=== PATIENT | female | born 1950 | race Caucasian/White ===

== ENCOUNTER 2016-04-20 16:43 | Emergency (ER) | payer BC ==
--- NOTE | 2016-04-20 16:56 | UC ---
Respiratory Complaint HPI - HPI Summary HPI Summary: The patient comes in today for: 1. Wheezing, cough, headache, sinus congestion, sore throat, left ear pain, body aches: Onset: 10 days ago. Palliative/Provocative: Being still and drinking liquids helps. Bending over makes her sinuses hurt. Exertion makes her short of breath. Quality: Ache Region: Sinuses, lungs. Severity: 6/10 Time: Constant. Associated symptoms: Rhinitis: none. Cough production: green. Chest pain: Retrosternal, ache, tightness, not present if she does not exert herself. Wheezing: Present. Inhalers: She has used in the past, but is not using them now. * - History of Current Complaint Stated Complaint: COUGH,ST,FEVER,EARS Time Seen by Provider: 04/20/16 16:49 Hx Obtained From: Patient Hx Last Menstrual Period: Years ago. ?: No - Allergies/Home Medications Allergies/Adverse Reactions: Allergies Allergy/AdvReac Type Severity Reaction Status Date / Time Amoxicillin Allergy Intermediate Hives Verified 07/29/15 10:59 Codeine AdvReac Intermediate Vomiting Verified 04/20/16 17:24 PMH/Surg Hx/FS Hx/Imm Hx Previously Healthy: No - IBS Endocrine History Of: Reports: Diabetes - type 2, Dyslipidemia Denies: Thyroid Disease, Hyperthyroidism, Hypothyroidism Cardiovascular History Of: Denies: Cardiac Disorders, Hypertension, Pacemaker/ICD, Myocardial Infarction , Congestive Heart Failure, Atrial Fibrillation, Deep Vein Thrombosis, Bleeding Disorders Respiratory History Of: Reports: Asthma Denies: COPD, Bronchitis, Pneumonia, Pulmonary Embolism GI/ History Of: Denies: Gastroesophageal Reflux, Ulcer, Gastrointestinal Bleed, Gall Bladder Disease, Kidney Stones, Diverticulitis, Renal Disease, Urosepsis Neurological History Of: Denies: TIA, CVA, Dementia, Seizures, Migraine Psychological History Of: Denies: Anxiety, Depression, Bipolar Disorder, Schizophrenia, Post Traumatic Stress Disorder Cancer History Of: Denies: Lung Cancer, Colorectal Cancer, Breast Cancer, Prostate Cancer, Cervical Cancer Other History Of: Negative For: HIV, Hepatitis B, Hepatitis C, Anticoagulant Therapy - Surgical History Surgical History: Yes Surgery Procedure, Year, and Place: PARA THYROIDECTOMY, TONSILECTOMY, TUBAL LIGATION,D&C FOR FIBROIDS, cataract/bilat - Family History Known Family History: Negative: Cardiac Disease, Hypertension - Social History Occupation: Employed Full-time Alcohol Use: Occasionally Substance Use Type: None Smoking Status (MU): Never Smoked Tobacco - Immunization History Most Recent Influenza Vaccination: [id number] Review of Systems Constitutional: Negative Skin: Negative Eyes: Negative ENT: Negative Respiratory: Shortness Of Breath, Cough Cardiovascular: Chest Pain Gastrointestinal: Negative Genitourinary: Negative All Other Systems Reviewed And Are Negative: Yes Physical Exam Triage Information Reviewed: Yes Appearance: Well-Appearing, No Pain Distress, Well-Nourished Vital Signs Reviewed: Yes Eyes: Positive: Conjunctiva Clear. Negative: Discharge ENT: Positive: Hearing grossly normal. Negative: Pharyngeal erythema, Nasal congestion, Nasal drainage, TM bulging, TM dull, TM red, Tonsillar swelling, Tonsillar exudate Dental: Negative: Gross Decay/Caries @, Dental Fracture @ Neck: Positive: Supple, Nontender, No Lymphadenopathy. Negative: Nuchal Rigidity Respiratory: Positive: Chest non-tender, No respiratory distress, No accessory muscle use, Other: - Inspiration/expiration cycle a bit shortened.. Negative: Rhonchi, Wheezing Cardiovascular: Positive: RRR, No Murmur Abdomen Description: Positive: Nontender, No Organomegaly, Soft. Negative: Distended, Guarding Musculoskeletal: Positive: Strength Intact, ROM Intact Neurological: Positive: Alert, Muscle Tone Normal Psychological: Positive: Age Appropriate Behavior, Consolable Skin: Negative: rashes, breakdown Respiratory Course/Dx - Course Course Of Treatment: Patient was told that I was concerned about her complaint of chest pain/tightness which is worse with exertion--particularly with her being diabetic. She was told that I would not be able to rule out her symptoms coming from a heart problem here and therefore would recommend her go to the ER. She was not interested in going to the ER and even declined getting an EKG. She wanted DuoNeb treatment. However later the patient declined the aerosol treatment. She was told of her diagnotic/treatment options. She does not want to go to the ER, but will take antibiotic, NSAID and inhaler. - Differential Dx/Diagnosis Provider Diagnoses: Sinusitis. bronchitis. Upper respiratory infection. bronchospasm. viral infection. Pharyngitis Discharge - Discharge Plan Condition: Stable Disposition: HOME Patient Education Materials: Upper Respiratory Infection (ED) Referrals: Xochitl Tucker MD [Primary Care Provider] - 1 Week (Please see your primary care provider in about a week to see how well you are doing. If you get worse, please be seen sooner.)
[2016-04-20] MEDS ORDERED: Albuterol/Ipratropium NEB.SOL* Albuterol 2.5 MG/Ipratropium 0.5 MG 3 ML INH ONE (17:03)
[2016-04-20 17:24] VITALS: BP 145/75
== END 2016-04-20 18:01 | disposition home or self-care (01) ==
LOC: UCCORT 16:43
DX: J32.9 Chronic sinusitis, unspecified (principal); J40 Bronchitis, not specified as acute or chronic; J06.9 Acute upper respiratory infection, unspecified; J98.01 Acute bronchospasm; B34.9 Viral infection, unspecified; Z88.5 Allergy status to narcotic agent; Z88.0 Allergy status to penicillin
CPT/HCPCS: 99212; A9270-GY; G0463

== ENCOUNTER 2016-10-16 19:59 | Emergency (ER) | payer BC ==
[2016-10-16 21:51] VITALS: BP 148/73
[2016-10-16] MEDS ORDERED: Ciprofloxacin TAB* 500 MG PO ONE (22:07)
--- NOTE | 2016-10-16 22:10 | ED ---
GI/ HPI - HPI Summary HPI Summary: 66 yr old female with the complaint of frequency, urgency, hesitancy, suprapubic discomfort. Onset of symptoms was over a week ago. She denies fever , chills, nausea and vomiting. She has no other complaints. Symptoms are moderate. - History of Current Complaint Chief Complaint: UCGU Time Seen by Provider: 10/16/16 21:38 Stated Complaint: URINARY Hx Last Menstrual Period: Years ago. - Allergy/Home Medications Allergies/Adverse Reactions: Allergies Allergy/AdvReac Type Severity Reaction Status Date / Time Amoxicillin Allergy Intermediate Hives Verified 10/16/16 21:47 Codeine AdvReac Intermediate Vomiting Verified 10/16/16 21:47 Home Medications: Home Medications Albuterol HFA INHALER* [Ventolin HFA Inhaler*] 2 puff INH Q6H PRN 10/16/16 [ History Confirmed 10/16/16] PMH/Surg Hx/FS Hx/Imm Hx Endocrine/Hematology History: Reports: Hx Diabetes - type 2 Denies: Hx Anticoagulant Therapy, Hx Thyroid Disease Cardiovascular History: Denies: Hx Congestive Heart Failure, Hx Deep Vein Thrombosis, Hx Hypertension , Hx Myocardial Infarction, Hx Pacemaker/ICD Respiratory History: Denies: Hx Asthma, Hx Chronic Obstructive Pulmonary Disease (COPD), Hx Lung Cancer, Hx Pneumonia, Hx Pulmonary Embolism GI History: Denies: Hx Gall Bladder Disease, Hx Gastrointestinal Bleed, Hx Ulcer, Hx Urosepsis History: Denies: Hx Kidney Stones, Hx Renal Disease Neurological History: Denies: Hx Dementia, Hx Migraine, Hx Seizures, Hx Transient Ischemic Attacks (TIA) Psychiatric History: Denies: Hx Anxiety, Hx Depression, Hx Schizophrenia, Hx Bipolar Disorder - Surgical History Surgery Procedure, Year, and Place: PARA THYROIDECTOMY, TONSILECTOMY, TUBAL LIGATION,D&C FOR FIBROIDS, cataract/bilat Infectious Disease History: No Infectious Disease History: Denies: Traveled Outside the [place] in Last 30 Days - Family History Known Family History: Positive: Unknown Negative: Cardiac Disease, Hypertension - Social History Lives: With Family Alcohol Use: Rare Substance Use Type: Reports: None Smoking Status (MU): Never Smoked Tobacco Review of Systems Constitutional: Negative Positive: dysuria, frequency, urgency All Other Systems Reviewed And Are Negative: Yes Physical Exam Triage Information Reviewed: Yes Vital Signs On Initial Exam: Initial Vitals Temp Pulse Resp BP Pulse Ox 97.3 F 70 14 148/73 98 10/16/16 21:39 10/16/16 21:39 10/16/16 21:39 10/16/16 21:39 10/16/16 21:39 Vital Signs Reviewed: Yes Appearance: Positive: Well-Appearing Eyes: Positive: EOMI ENT: Positive: Normal ENT inspection Respiratory/Lung Sounds: Positive: Clear to Auscultation, Breath Sounds Present Cardiovascular: Positive: RRR Abdomen Description: Positive: Nontender Musculoskeletal: Positive: Strength/ROM Intact Neurological: Positive: Alert, Oriented to Person Place, Time Psychiatric: Positive: Normal Diagnostics - Vital Signs Vital Signs Temp Pulse Resp BP Pulse Ox 10/16/16 21:39 97.3 F 70 14 148/73 98 - Laboratory Lab Results: Lab Results 10/16/16 Range/Units 21:53 POC Urine Color Other POC Urine Clarity Cloudy POC Urine pH 5.5 (5-9) POC Ur Specif [place] 1.010 (1.010-1.030) POC Urine Protein Negative (Negative) POC Ur Glucose (UA) 1+ H (Negative) POC Urine Ketones Negative (Negative) POC Urine Blood Trace-intact H (Negative) POC Urine Nitrite Negative (Negative) POC Urine Bilirubin Negative (Negative) POC Urine Urobilinogen 0.2 (Negative) POC U Leukocyte Esteras 3+ H (Negative) Lab Statement: Any lab studies that have been ordered have been reviewed, and results considered in the medical decision making process. GIGU Course/Dx - Course Course Of Treatment: 66 yr old female with urinary symptoms and uti by testing. Rx with cipro - Diagnoses Provider Diagnoses: UTI (urinary tract infection) Discharge - Discharge Plan Condition: Good Disposition: HOME Prescriptions: Ciprofloxacin TAB* [Cipro 500 MG TAB*] 500 mg PO BID #14 tab Patient Education Materials: Urinary Tract Infection in Women (ED) Referrals: Xochitl Tucker MD [Primary Care Provider] -
== END 2016-10-16 22:17 | disposition home or self-care (01) ==
LOC: UCCORT 19:59
DX: N39.0 Urinary tract infection, site not specified (principal); B96.1 Klebsiella pneumoniae [K. pneumoniae] as the cause of diseases classified elsewhere; E11.9 Type 2 diabetes mellitus without complications; Z88.1 Allergy status to other antibiotic agents; Z88.5 Allergy status to narcotic agent
CPT/HCPCS: 81003; 87077; 87086; 87186; 99212; A9270-GY; G0463

== ENCOUNTER 2017-03-19 10:24 | Emergency (ER) | payer BC ==
[2017-03-19 11:24] VITALS: BP 135/71
--- NOTE | 2017-03-19 12:35 | UC ---
Respiratory Complaint HPI - HPI Summary HPI Summary: 66 yo female has been ill for one week productive cough/wheezing low energy/fatigue myalgias sinus pressure and pain Has used inhalers in past but no dx of asthma or COPD - History of Current Complaint Chief Complaint: UCRespiratory Stated Complaint: RESPIRATORY,FLU SYMPTOMS Time Seen by Provider: 03/19/17 12:20 Hx Obtained From: Patient Hx Last Menstrual Period: Years ago. Onset/Duration: Gradual Onset, Lasting Days - 7 Timing: Constant Severity Initially: Mild Severity Currently: Moderate Pain Intensity: 3 Pain Scale Used: 0-10 Numeric Character: Cough: Productive Aggravating Factors: Exertion, Deep Breaths Alleviating Factors: Nothing Associated Signs And Symptoms: Positive: Fever, Chills, Wheezing, Nasal Congestion, Sinus Discomfort Related History: Similar Episode/Dx as: - bronchitis - Allergies/Home Medications Allergies/Adverse Reactions: Allergies Allergy/AdvReac Type Severity Reaction Status Date / Time Amoxicillin Allergy Intermediate Hives Verified 03/19/17 11:24 Codeine AdvReac Intermediate Vomiting Verified 03/19/17 11:24 PMH/Surg Hx/FS Hx/Imm Hx Previously Healthy: Yes Endocrine History: Other Other Endocrine History: hyperparathyoidism Respiratory History: Bronchitis, Pneumonia Other History Of: Negative For: HIV, Hepatitis B, Hepatitis C, Anticoagulant Therapy - Surgical History Surgical History: Yes Surgery Procedure, Year, and Place: PARA THYROIDECTOMY, TONSILECTOMY, TUBAL LIGATION,D&C FOR FIBROIDS, cataract/bilat - Family History Known Family History: Positive: Unknown Negative: Cardiac Disease, Hypertension - Social History Alcohol Use: Occasionally Substance Use Type: None Smoking Status (MU): Never Smoked Tobacco - Immunization History Most Recent Influenza Vaccination: [id number] Review of Systems Constitutional: Fever, Chills, Fatigue Skin: Negative Eyes: Negative ENT: Nasal Discharge, Sinus Congestion Respiratory: Cough Cardiovascular: Negative Gastrointestinal: Negative Genitourinary: Negative Motor: Negative Neurovascular: Negative Musculoskeletal: Negative Neurological: Negative Psychological: Negative Is Patient Immunocompromised?: No All Other Systems Reviewed And Are Negative: Yes Physical Exam Triage Information Reviewed: Yes Appearance: Well-Appearing, No Pain Distress, Well-Nourished Vital Signs: Initial Vital Signs Temp 99 F 03/19/17 11:13 Pulse 80 03/19/17 11:13 Resp 12 03/19/17 11:13 BP 135/71 03/19/17 11:13 Pulse Ox 98 03/19/17 11:13 Vital Signs Reviewed: Yes Eyes: Positive: Conjunctiva Clear ENT: Positive: Hearing grossly normal, Nasal congestion, Uvula midline. Negative: Muffled voice, Hoarse voice, Dental tenderness Dental: Positive: Other: - upper plate Neck: Positive: Supple, Nontender, No Lymphadenopathy, Other: - surgical scar Respiratory: Positive: No respiratory distress, No accessory muscle use, Wheezing - with forced expiration Cardiovascular: Positive: RRR, No Murmur, Pulses Normal Musculoskeletal: Positive: ROM Intact, No Edema Neurological: Positive: Alert Psychological Exam: Normal UC Diagnostic Evaluation - Laboratory O2 Sat by Pulse Oximetry: 98 - normal/not hypoxic - Radiology Xray Interpretation: No Acute Changes Radiology Interpretation Completed By: Radiologist Respiratory Course/Dx - Differential Dx/Diagnosis Provider Diagnoses: acute bronchitis Discharge - Discharge Plan Condition: Stable Disposition: HOME Prescriptions: Albuterol inh POWDER (NF) [Proair Respiclick] 108 mcg IN QID #1 DOXYcycline CAP(*) [DOXYcycline 100MG CAP(*)] 100 mg PO BID #14 cap Patient Education Materials: Acute Bronchitis (ED) Referrals: Xochitl Tucker MD [Primary Care Provider] - 3 Days (if not better) Additional Instructions: recheck for new or worsening symptoms
--- NOTE | 2017-03-19 12:52 | RAD ---
Indication: Cough and wheezing. 2 views of the chest including dual energy PA views are reviewed. No mediastinal shift is noted. Heart is of normal size and configuration. Calcified granuloma in the left lung base is noted. No pleural fluid, pneumonia or pneumothorax is noted. IMPRESSION: No active cardiopulmonary disease is noted.
== END 2017-03-19 13:18 | disposition home or self-care (01) ==
LOC: UCCORT 10:24
DX: J20.9 Acute bronchitis, unspecified (principal); E21.3 Hyperparathyroidism, unspecified; Z87.01 Personal history of pneumonia (recurrent); Z88.3 Allergy status to other anti-infective agents; Z88.5 Allergy status to narcotic agent
CPT/HCPCS: 71046; 99212; G0463

== ENCOUNTER 2018-06-04 17:44 | Emergency (ER) | payer BC ==
[2018-06-04] MEDS ORDERED: Metoclopramide IV* 5 MG/ML 2 ML VIAL ONE (20:25)
[2018-06-04] MEDS ORDERED: Naproxen TAB* 250 MG PO ONE (20:26)
--- NOTE | 2018-06-04 20:39 | UC ---
Respiratory Complaint HPI - HPI Summary HPI Summary: 68 year old female with history of DM, migraine here with complaint of URI symptoms along with headache and vomiting. Reports symptoms for the past one week but 3 days ago, patient developed migraine with nausea and vomiting. She reports multiple episodes of vomiting but no fever or diarrhea. Reports she has not had migraine as such in over two years. She also reports cough, non- productive worsening in the past few days. Reports chest pain when she coughs but denies exertional symptoms, change in ET or diaphoresis. - History of Current Complaint Chief Complaint: UCGeneralIllness Stated Complaint: SINUSES,HEADACHE Time Seen by Provider: 06/04/18 19:30 Hx Obtained From: Patient Hx Last Menstrual Period: Years ago. Onset/Duration: Gradual Onset Timing: Constant Severity Initially: Mild Pain Intensity: 5 Character: Cough: Nonproductive Aggravating Factors: Nothing Alleviating Factors: Nothing Associated Signs And Symptoms: Positive: Fever, Chills, URI, Nasal Congestion, Sinus Discomfort. Negative: Hemoptysis, Calf Pain, Hoarseness - Allergies/Home Medications Allergies/Adverse Reactions: Allergies Allergy/AdvReac Type Severity Reaction Status Date / Time amoxicillin Allergy Hives Verified 06/04/18 18:30 codeine AdvReac Vomiting Verified 06/04/18 18:30 Home Medications: Home Medications Berberine 500 mg PO DAILY 06/04/18 [History Confirmed 06/04/18] Calcium Carbonate CHEW TAB* [Tums*] 500 mg PO BID PRN 06/04/18 [History Confirmed 06/04/18] Ibuprofen TAB* [Advil TAB*] 400 mg PO Q6H PRN 06/04/18 [History Confirmed ] Simethicone [Gas-X Extra Strength] 125 mg PO DAILY PRN 06/04/18 [History Confirmed 06/04/18] PMH/Surg Hx/FS Hx/Imm Hx Previously Healthy: No Endocrine History: Diabetes Other History Of: Negative For: HIV, Hepatitis B, Hepatitis C, Anticoagulant Therapy - Surgical History Surgical History: Yes Surgery Procedure, Year, and Place: PARA THYROIDECTOMY, TONSILECTOMY, TUBAL LIGATION,D&C FOR FIBROIDS, cataract/bilat - Family History Known Family History: Positive: Unknown Negative: Cardiac Disease, Hypertension - Social History Alcohol Use: Rare Substance Use Type: None Smoking Status (MU): Never Smoked Tobacco - Immunization History Most Recent Influenza Vaccination: [id number] Review of Systems All Other Systems Reviewed And Are Negative: Yes Constitutional: Positive: Negative ENT: Positive: Sinus Congestion Respiratory: Positive: Cough Cardiovascular: Positive: Chest Pain Genitourinary: Positive: Negative Neurological: Positive: Headache. Negative: Weakness, Paresthesia, Numbness Is Patient Immunocompromised?: No Physical Exam Triage Information Reviewed: Yes Appearance: Well-Appearing Vital Signs: Initial Vital Signs Temp 37.1 C 06/04/18 18:32 Pulse 95 06/04/18 18:32 Resp 14 06/04/18 18:32 BP 130/64 06/04/18 18:32 Pulse Ox 97 06/04/18 18:32 Vital Signs Reviewed: Yes ENT Exam: Normal Neck exam: Normal Respiratory: Positive: Other: - tender to palpation Cardiovascular Exam: Normal Abdominal Exam: Normal Musculoskeletal Exam: Normal Neurological Exam: Normal Skin Exam: Normal Diagnostics - EKG Cardiac Rate: NL Cardiac Rhythm: Sinus: Normal ST Segment: Normal Respiratory Course/Dx - Course Course Of Treatment: Patient non-toxic, well appearing. She feels better after nebs. CXR here no evidence of consolidation. EKG non-ischemic. Will dc with meds and return/follow up precaution. - Differential Dx/Diagnosis Differential Diagnosis/HQI/PQRI: Lower Resp Infection, Sinusitis, Other - Migraine Provider Diagnosis: URI with cough and congestion Discharge - Sign-Out/Discharge Documenting (check all that apply): Patient Departure All imaging exams completed and their final reports reviewed: Yes - Discharge Plan Condition: Good Disposition: HOME Prescriptions: Benzonatate CAP* [Tessalon 100 MG CAP*] 100 mg PO TID #15 cap Naproxen [Naproxen 375 mg tab] 375 mg PO BID PRN #20 tablet PRN Reason: Headache Patient Education Materials: Migraine Headache (ED), Upper Respiratory Infection (ED) Referrals: Xochitl Tucker MD [Primary Care Provider] - - Billing Disposition and Condition Condition: GOOD Disposition: Home
[2018-06-04] MEDS: Albuterol/Ipratropium NEB.SOL* Albuterol 2.5 MG/Ipratropium 0.5 MG 3 ML INH ONE (20:40)
[2018-06-04 21:24] VITALS: BP 142/62
== END 2018-06-04 21:30 | disposition home or self-care (01) ==
LOC: UCCORT 17:44
DX: J06.9 Acute upper respiratory infection, unspecified (principal); R05 Cough; R09.81 Nasal congestion; E11.9 Type 2 diabetes mellitus without complications; R11.2 Nausea with vomiting, unspecified; G43.909 Migraine, unspecified, not intractable, without status migrainosus; Z88.0 Allergy status to penicillin; Z88.5 Allergy status to narcotic agent
CPT/HCPCS: 71046; 93005; 96372; 99212; A9270-GY; G0463; J2765

== ENCOUNTER 2018-11-19 14:26 | Emergency (ER) | payer BC ==
--- OUTSIDE RECORDS SUMMARY | 2018-11-19 14:35 | XMS REPORT | Summary of Care ---
:1950 Author Organization [facility] Address [address] [facility] [place] [address] Care Team Providers Name Role Phone Xochitl Tucker MD Primary Care Provider Reason for Referral MRI/CAT/PET Scan (Routine) Status Reason Specialty Diagnoses / Referred By Referred To Procedures Contact Contact Pending Review Diagnoses Hyperparathyroidism (HCC) Galsamir, Procedures NM SPECT/CT NECK CHEST PARATHYROID MD Xochitl [address] [place] [address] MRI/CAT/PET Scan (Routine) Status Reason Specialty Diagnoses / Referred By Referred To Procedures Contact Contact Pending Review Diagnoses Hyperparathyroidism (HCC) Galyanova, Procedures US SOFT TISSUE HEAD NECK ULTRASOUND MD Xochitl [address] [place] [address] Reason for Visit Reason Comments Follow Up 1mth lab results Encounter Details Date Type Department Care Team Description 10/26/2018 Office Visit Isabel Tucker, Uncontrolled diabetes mellitus type 2 without complications (HCC) (Primary Dx); Practice MD Xochitl Hyperparathyroidism (HCC) [address] [facility] [address] [place] [address] [place], [place] [phone] [phone] Allergies Active Allergy Reactions Severity Noted Date Comments Kdc:Amoxicillin+Edetic Acid+Sodium Benzoate Hives 06/29/2012 Codeine GI Reaction 06/29/2012 Fentanyl And Related GI Reaction 07/02/2015 documented as of this encounter (statuses as of 10/26/2018) Medications Medication Sig Dispensed Refills Start Date End Date Status Simethicone (GAS-X Take by 0 Active PO) mouth. As needed Glucose Blood 1 Each by 100 Strip 0 07/14/2018 Active (ACCU-CHEK Topical route SMARTVIEW) In Vitro TWICE DAILY. Strip ACCU-CHEK FASTCLIX Inject 1 Each 102 Each 0 07/14/2018 Active LANCETS Does not beneath the apply Misc skin TWICE DAILY. Vitamin D, Take 50,000 4 Cap 0 09/23/2018 Active Ergocalciferol, Units by mouth (ERGOCALCIFEROL) EVERY 7 DAYS. 940[address] units Oral Cap metFORMIN Take 1 Tab by 60 Tab 1 10/05/2018 Active (GLUCOPHAGE) 500 MG mouth TWICE Oral Tab DAILY. glipiZIDE Take 1 Tab by 30 Tab 0 08/22/2018 10/26/2018 Discontinued (GLUCOTROL) 5 MG mouth DAILY. Oral Tab Rosuvastatin Take 1 Tab by 30 Tab 0 08/22/2018 10/26/2018 Discontinued Calcium (CRESTOR) mouth DAILY. 10 MG Oral Tab documented as of this encounter (statuses as of 10/26/2018) Active Problems Problem Noted Date Age-related osteoporosis without current pathological fracture 07/22/2018 Uncontrolled diabetes mellitus type 2 without complications 07/22/2018 Uncontrolled type 2 diabetes mellitus without complication, without 06/23/2016 long-term current use of insulin Hyperlipidemia 06/29/2012 IBS (irritable bowel syndrome) Migraine DM (diabetes mellitus) Parathyroid adenoma Overview: NS positive 12/28/12 documented as of this encounter (statuses as of 10/26/2018) Resolved Problems Problem Noted Date Resolved Date Diabetes mellitus 07/28/2012 11/25/2012 documented as of this encounter (statuses as of 10/26/2018) Immunizations Name Administration Dates Next Due Influenza Vaccine Whole 11/19/2015 PNEUMOCOCCAL POLYSACCHARIDE VACCINE 11/29/2015, 06/12/2013 Pneumococcal Conjugate(13 Valent) 07/22/2018 TD Vaccine 06/25/2010 documented as of this encounter Social History Tobacco Use Types Packs/Day Years Used Date Never Smoker Smokeless Tobacco: Never Used Alcohol Use Drinks/Week oz/Week Comments Yes 0 Standard drinks or equivalent 0.0 Sex Assigned at Date Recorded Not on file Job Start Date Occupation Industry Not on file Not on file Not on file Travel History Travel Start Travel End No recent travel history available. documented as of this encounter Last Filed Vital Signs Vital Sign Reading Time Taken Comments Blood Pressure 108/60 10/26/2018 2:34 PM EDT Pulse 70 10/26/2018 2:34 PM EDT Temperature 37.6 10/26/2018 2:34 PM EDT C (99.7 F) Respiratory Rate - - Oxygen Saturation 96% 10/26/2018 2:34 PM EDT Inhaled Oxygen Concentration - - Weight 66.7 kg (147 lb 1.6 oz) 10/26/2018 2:34 PM EDT Height 157.5 cm (5' 2") 10/26/2018 2:34 PM EDT Body Mass Index 26.9 10/26/2018 2:34 PM EDT documented in this encounter Patient Instructions Patient InstructionsXochitl Tucker MD - 10/26/2018 2:20 PM EDT1. Schedule neck US and nuclear study 2. Schedule fasting blood tests 3. Follow up after the tests with sugar diary 4. Schedule appointment with an eye doctor documented in this encounter Progress Notes Xochitl Tucker MD - 10/26/2018 2:20 PM EDT PATIENT: Telma Morales : 1950 DATE OF SERVICE: 10/26/2018 SUBJECTIVE: 68-y.o. female for follow up of diabetes. Diabetic Review of Systems - medication compliance: compliant all of the time, diabetic diet compliance: compliant most of the time, home glucose monitoring: is performed regularly, didn't bring sugar diary today, reports fasting values range 160-170, non fasting values range 120-150. Other symptoms and concerns: continues to have elevated Calcium, PTH. Vit D - normal. Has history ofparathyroid adenoma Past Medical History: Diagnosis Date Cervical dysplasia Cryo DM (diabetes mellitus) (HCC) eye 07/2013 Hyperlipidemia IBS (irritable bowel syndrome) Migraine Parathyroid adenoma Removed 1998 Current Outpatient Medications Medication Sig ACCU-CHEK FASTCLIX LANCETS Does not apply Misc Inject 1 Each beneath the skin TWICE DAILY. Glucose Blood (ACCU-CHEK SMARTVIEW) In Vitro Strip 1 Each by Topical route TWICE DAILY. metFORMIN (GLUCOPHAGE) 500 MG Oral Tab Take 1 Tab by mouth TWICE DAILY. Simethicone (GAS-X PO) Take by mouth. As needed Vitamin D, Ergocalciferol, (ERGOCALCIFEROL) 17725 units Oral Cap Take 50, 000 Units by mouth EVERY 7 DAYS. No current facility-administered medications for this visit. OBJECTIVE: BP 108/60 (BP Location: Left arm, Patient Position: Sitting) | Pulse 70 | Temp 99.7 F (37.6 C) | Ht 5' 2" (1.575 m) | Wt 147 lb 1.6 oz (66.7 kg ) | SpO2 96% | BMI 26.90 kg/m General appearance: alert, well appearing, and in no distress. Renal panel - elevated sugar, Calcium, Vit D, TSH - normal, PTH - high Component Latest Ref Rng & Units 10/20/2018 10/20/2018 10/20/2018 10/20/2018 8:38 AM 8:38 AM 8:38 AM 8:38 AM Sodium 134 - 145 mmol/L 137 Potassium 3.5 - 5.1 mmol/L 4.8 Chloride 98 - 107 mmol/L 104 CO2 22 - 30 mmol/L 24 Glucose (Lab) 70 - 99 mg/dl 178 (H) Creatinine 0.7 - 1.2 mg/dl 0.5 (L) BUN 7 - 17 mg/dl 11 Calcium 8.3 - 10.1 mg/dl 11.0 (H) Albumin 3.5 - 5.0 g/dl 4.1 Phosphorus 2.5 - 4.5 MG/DL 3.6 eGFR See Interpretation Below ml/min/1.73ml Sq >60 BUN/Creatinine Ratio 6 - 22 RATIO 22 Anion Gap 3 - 11 mmol/L 9 Vitamin D 25 Hydroxy 32.0 - 100.0 ng/ml 35.3 TSH 0.47 - 4.68 uIu/ml 2.09 Pth Intact 10.0 - 73.0 pg/ml 140.1 (H) Patient advised on tests results ICD-9-CM ICD-10-CM 1. Uncontrolled diabetes mellitus type 2 without complications (HCC) 250.02 E11.65 COMPREHENSIVE METABOLIC PANEL GLYCOHEMOGLOBIN A1C LIPID PROFILE 2. Hyperparathyroidism (HCC) 252.00 E21.3 US SOFT TISSUE HEAD NECK ULTRASOUND NM SPECT/CT NECK CHEST PARATHYROID IONIZED CALCIUM Patient Instructions 1. Schedule neck US and nuclear study 2. Schedule fasting blood tests 3. Follow up after the tests with sugar diary 4. Schedule appointment with an eye doctor Author: Xochitl Tucker MD 10/26/2018 14:56 documented in this encounter Plan of Treatment Date Type Specialty Care Team Description 11/16/2018 Lab Internal Medicine Name Type Priority Associated Diagnoses Order Schedule US SOFT TISSUE HEAD NECK Imaging Routine Hyperparathyroidism (HCC) Expected : ULTRASOUND 10/26/2018, Expires: 10/26/2019 NM SPECT/CT NECK CHEST Imaging Routine Hyperparathyroidism (HCC) Expected: PARATHYROID 10/26/2018, Expires: 10/26/2019 COMPREHENSIVE METABOLIC Lab Routine Uncontrolled diabetes Expected: PANEL mellitus type 2 without 10/26/2018 complications (HCC) (Approximate), Expires: 10/27/2019 IONIZED CALCIUM Lab Routine Hyperparathyroidism (HCC) Expected: 10/26/2018 (Approximate), Expires: 10/27/2019 GLYCOHEMOGLOBIN A1C Lab Routine Uncontrolled diabetes Expected: mellitus type 2 without 10/26/2018 complications (HCC) (Approximate), Expires: 10/27/2019 LIPID PROFILE Lab Routine Uncontrolled diabetes Expected: mellitus type 2 without 10/26/2018 complications (HCC) (Approximate), Expires: 10/27/2019 Health Maintenance Due Date Last Done Comments COLONOSCOPY SCREENING 1998 ZOSTER IMMUNIZATION SERIES 1998 (1 of 2) Diabetic Eye Exam 04/29/2016 04/29/2015 HEMOGLOBIN A1C 10/07/2018 07/07/2018, 05/26/2016, 06/05/2015, Additional history exists INFLUENZA VACCINE (#1) 2018 11/19/2015 FOOT EXAM 06/29/2019 06/28/2018, 06/28/2018, 06/23/2016, Additional history exists URINE MICROALBUMIN 06/29/2019 06/28/2018, 06/04/2015, 07/28/2012 LIPID DISORDER SCREENING 07/08/2019 07/07/2018, 05/26/2016, 06/05/2015, Additional history exists DEPRESSION SCREENING 07/23/2019 07/22/2018 FALL RISK ASSESSMENT 07/23/2019 07/22/2018, 07/22/2018 MAMMOGRAM (SCREENING) 07/23/2019 07/22/2018, 08/22/2012, 07/09/2012 OSTEOPOROSIS SCREENING 07/07/2028 07/07/2018 PNEUMOCOCCAL 65+YRS Completed 07/22/2018, 11/29/2015, 06/12/2013 HPV IMMUNIZATION SERIES Aged Out No longer eligible based on patient's age to complete this topic MENINGOCOCCAL VACCINE IMM Aged Out No longer eligible based on patient's age to complete this topic documented as of this encounter Goals Goal Patient Goal Associated Recent Patient-Stated? Author Type Problems Progress Diabetes < 7.0 Diabetes DM (diabetes 13.2 No Galyanova, mellitus) (07/07/2018 Xochitl, 8:53 AM EDT) Note: Diabetes Care Plan According to current 2014 ADA guidelines the patient A1C goal is less than 7. The patient's last A1C was Lab Results Component Value Date GLYCOHEMOGLOBIN A1C 8.8* 06/05/2015 The patient is:above goal . As your provider, it is important that I advise you regarding: your current medications and help you with any challenges you may face taking your medications as directed (ex. instructions, cost, side effects, and interactions). Important lifestyle changes:exercise, diet and medication compliance your clinical goals and how you can achieve success:weight reduction, exercise plan and diet management medication management: adjusted medications as appropriate patient education/self-management tools provided: Yes To successfully manage my Diabetes I will: have lab work every six months if my previous A1c was 7 or less. If my results were greater than 7, I will have lab work every three months. My goal is to control my diabetes by keeping A1c below 7.0 take medications every day as prescribed by my healthcare provider and if unable to take them I will discuss with my provider. exercise/walk 30 minutes 5 day(s) per week. If I experience chest pain, chest tightness, or shortness of breath, I will seek medical attention immediately. check feet daily. If sores or irritation are noticed, will seek medical attention. follow a low carbohydrate and low fat diet. My goal is an LDL (bad cholesterol) number less than 100 when I have my routine lab work. check blood sugar as instructed and will call my healthcare provider if the results are consistently below 70 or above 300. I will monitor for symptoms of low blood sugar (feeling faint, dizzy, lig htheaded, jittery, sweaty, or hungry), if symptoms are noticed, I will eat or drink something (glucose tabs, orange juice, candy) to help raise sugar. record my blood sugar results (including dextrose sticks). [facility] is safe and secure way for you to do this in your medical record online. to prevent kidney problems common to people with diabetes I will complete a yearly Microalbumin to check for protein in urine. I will talk with my healthcare provider about medications to prevent diabetic renal disease. to prevent diabetic retinopathy I will see an eye doctor yearly. A yearly dilated eye exam helps prevent blindness. if currently smoking, will discuss how to quit smoking with my healthcare provider and work towards quitting. Glycohemoglobin A1c < 7.0 Diabetes 13.2 (07/07/2018 8:53 No Xochitl Tucker AM EDT) Note: This is an individualized treatment (diabetes control, HgbA1C) goal for Telma Morales: Displayed above is your progress towards your HgbA1C goal. Your goal is shown above (on the left); your most recent HgbA1C is shown on the right. Note that lower numbers are better. Keep immunizations current Lifestyle No Xochitl Tucker MD Note: This is an individualized lifestyle goal for Telma Morales: Please be sure to keep up-to-date on recommended immunizations. For example, this would include a yearly influenza vaccine. Immunization status can be seen by looking at the Health Maintenance sections of your [facility], Plan of Care, and any After Visit Summaries. Weight loss vs. 18 mo Lifestyle 4 (10/26/2018 2:34 PM No Xochitl Tucker MD max (lbs) >= 10 EDT) Note: This is an individualized lifestyle goal for Telma Morales: Your body mass index (BMI) is more than 30. You should lose weight. A reasonable starting goal is to lose 10 pounds. Displayed above is how many pounds you have lost thus far towards your 10 pound weight loss goal. Take all prescribed medications as Self-management No Xochitl Tucker MD directed Note: This is an individualized self-management goal for Telma Morales: Please take all prescribed medications as directed. 1. Do not skip doses. If you cannot afford your medications, talk with your doctor. 2. Use a pill reminder system such as a pill box if needed. Your pharmacist can help you with this. 3. Contact your Pharmacy 5 days before your medication runs out. If you cannot take your medications for any reasons, talk with your doctor. 4. Please bring all of your medication bottles and inhalers (or a list of all your medications/inhalers) with you to every visit. Potential barriers to meeting all of your care plan goals will continue to be addressed on an ongoing basis. documented as of this encounter Results Not on filedocumented in this encounter Visit Diagnoses Diagnosis Uncontrolled diabetes mellitus type 2 without complications (HCC) - Primary Hyperparathyroidism (HCC) Hyperparathyroidism, unspecified documented in this encounter Insurance Payer Benefit Plan / Subscriber ID Effective Dates Phone Address Type Group [facility] xxxxxxxxxxxxxxx 2016-[address] [employer] (Work) [place] [address] documented as of this encounter
[2018-11-19 14:55] VITALS: BP 143/60
--- NOTE | 2018-11-19 15:37 | UC ---
Complaint Female HPI - HPI Summary HPI Summary: 3-4 days of pain and burning with urination pain in lower back and abdomen no fevers, chills nausea or vomiting - History Of Current Complaint Chief Complaint: UCGU Stated Complaint: URINARY Time Seen by Provider: 11/19/18 15:21 Hx Obtained From: Patient Hx Last Menstrual Period: Years ago. ?: No Onset/Duration: Sudden Onset, Lasting Days - 4, Still Present, Worse Since - getting worse daily Timing: Constant Pain Intensity: 8 Pain Scale Used: 0-10 Numeric Character: Burning Aggravating Factor(s): Urination Alleviating Factor(s): Nothing Associated Signs And Symptoms: Positive: Back Pain. Negative: Fever, Nausea, Vomiting(# Of Episodes =) - Allergies/Home Medications Allergies/Adverse Reactions: Allergies Allergy/AdvReac Type Severity Reaction Status Date / Time amoxicillin Allergy Hives Verified 11/19/18 14:55 fentanyl Allergy Vomiting Verified 11/19/18 14:55 codeine AdvReac Vomiting Verified 11/19/18 14:55 Home Medications: Home Medications Ergocalciferol (Vitamin D2) [Vitamin D2] 50 mcg PO WEEKLY 11/19/18 [History Confirmed 11/19/18] Metformin HCl [Metformin HCl ER] 500 mg PO BID 11/19/18 [History Confirmed 11/19] PMH/Surg Hx/FS Hx/Imm Hx Previously Healthy: No Endocrine History: Diabetes Other History Of: Negative For: HIV, Hepatitis B, Hepatitis C, Anticoagulant Therapy - Surgical History Surgical History: Yes Surgery Procedure, Year, and Place: PARA THYROIDECTOMY, TONSILECTOMY, TUBAL LIGATION,D&C FOR FIBROIDS, cataract/bilat - Family History Known Family History: Positive: Unknown Negative: Cardiac Disease, Hypertension - Social History Occupation: Retired Lives: With Family Alcohol Use: Rare Substance Use Type: None Smoking Status (MU): Never Smoked Tobacco - Immunization History Most Recent Influenza Vaccination: [id number] Review of Systems All Other Systems Reviewed And Are Negative: Yes Constitutional: Positive: Negative Skin: Positive: Negative Eyes: Positive: Negative ENT: Positive: Negative Respiratory: Positive: Negative Cardiovascular: Positive: Negative Gastrointestinal: Positive: Abdominal Pain Genitourinary: Positive: Dysuria, Frequency, Urgency Motor: Positive: Negative Neurovascular: Positive: Negative Musculoskeletal: Positive: Negative Neurological: Positive: Negative Psychological: Positive: Negative Is Patient Immunocompromised?: No Physical Exam Triage Information Reviewed: Yes Appearance: Well-Appearing, No Pain Distress, Well-Nourished Vital Signs: Initial Vital Signs Temp 99.5 F 11/19/18 14:47 Pulse 76 11/19/18 14:47 Resp 16 11/19/18 14:47 BP 143/60 11/19/18 14:47 Pulse Ox 99 11/19/18 14:47 Vital Signs Reviewed: Yes Eye Exam: Normal Eyes: Positive: Conjunctiva Clear ENT Exam: Normal ENT: Positive: Normal ENT inspection, Hearing grossly normal. Negative: Trismus , Muffled voice, Hoarse voice Dental Exam: Normal Neck exam: Normal Neck: Positive: Supple, Nontender Respiratory Exam: Normal Respiratory: Positive: Chest non-tender, No respiratory distress, No accessory muscle use Cardiovascular Exam: Normal Cardiovascular: Positive: RRR, Pulses Normal, Brisk Capillary Refill Abdominal Exam: Normal Abdomen Description: Positive: Nontender, No Organomegaly, Soft, Other: - lower abdomen/supra pubic pain. Negative: CVA Tenderness (R), CVA Tenderness (L), McBurney's Point Tenderness Bowel Sounds: Positive: Present Musculoskeletal Exam: Normal Musculoskeletal: Positive: Strength Intact, ROM Intact, No Edema Neurological Exam: Normal Neurological: Positive: Alert, Muscle Tone Normal Psychological Exam: Normal Skin Exam: Normal Complaint Female Dx - Course Course Of Treatment: ua consistent with uti---will culture urine encourage increase fluids rx bactrim and pyridium, information provided regarding hypertension---follow with pcp in 1-2 weeks to ed if symptoms worsen - Differential Dx/Diagnosis Provider Diagnosis: UTI (urinary tract infection), Hypertension Discharge ED - Sign-Out/Discharge Documenting (check all that apply): Patient Departure All imaging exams completed and their final reports reviewed: No Studies - Discharge Plan Condition: Stable Disposition: HOME Prescriptions: Phenazopyridine TAB* [Pyridium 100 mg TAB*] 100 mg PO TID #9 tab Sulfamethox/Trimethoprim DS* [Bactrim DS 800/160 TAB*] 1 tab PO BID #14 tab Patient Education Materials: Phenazopyridine (By mouth), Urinary Tract Infection in Women (ED), Hypertension (ED) Referrals: Xochitl Tucker MD [Primary Care Provider] - 2 Weeks - Billing Disposition and Condition Condition: STABLE Disposition: Home - Attestation Statements Provider Attestation: Per institutional requirements, I have reviewed the chart, however, I was not consulted specifically or made aware of this patient by the midlevel provider. I did not personally evaluate, interact with , or disposition this patient.
== END 2018-11-19 15:47 | disposition home or self-care (01) ==
LOC: UCCORT 14:26
DX: N39.0 Urinary tract infection, site not specified (principal); M54.5 Low back pain; I10 Essential (primary) hypertension; E11.9 Type 2 diabetes mellitus without complications; Z79.84 Long term (current) use of oral hypoglycemic drugs; Z88.5 Allergy status to narcotic agent; Z88.0 Allergy status to penicillin
CPT/HCPCS: 81003; 87077; 87086; 87186; 99212; G0463